=== PATIENT | female | born 1980 | race Two or more races ===

== ENCOUNTER 2022-08-26 09:23 | Emergency (ER) | payer BC ==
[~2022-08-26] VITALS: Ht 165.1 cm; Wt 124.7 kg
--- NOTE | 2022-08-26 09:23 | NUR ---
BIB RA 78 FROM HOME ROOMATE STATED THAT SHE WAS ALTERED IN THE BATHROOM ROOMATE STATED SHE MAY HAVE TAKEN XYWAV WHICH MAKES HER DROWSY. ROOMATE IS UNSURE IF IT WAS APOSSIBLE DRUG OVERSODE AND CALLED EMS. BLOOD GLUCOSE WAS 134 PER EMS. EMS STATED SHE WAS GIVEN 4MG OF ZOFRANA ND 2MG OF NARCAN MAGNET PLACER. ATTACHED TO MONITOR, VITALS ARE WITHIN NORMAL LIMITS. AWAITING MD ROSALES.
--- NOTE | 2022-08-26 09:26 | NUR ---
BLOOD GLUCOSE 97
--- NOTE | 2022-08-26 09:45 | NUR ---
IV started on RAC flushes well no infiltration
--- NOTE | 2022-08-26 09:46 | NUR ---
Straight cath inserted. Urine collected and sent
--- NOTE | 2022-08-26 09:52 | NUR ---
PT WENT TO [facility]IA [facility]
[2022-08-26] MEDS ORDERED: IV NS 0.9% 1,000 ML BAG IV ONE (10:00)
--- NOTE | 2022-08-26 10:15 | NUR ---
PT RETURNED FROM [facility]IA [facility]
[2022-08-26 10:25] LABS: BILIRUBIN,URINE NEGATIVE (NEGATIVE); COLOR,URINE YELLOW (YELLOW); LEUKOCYTE ESTERASE ,URINE NEGATIVE (NEGATIVE); NITRITE, URINE NEGATIVE (NEGATIVE); PH,URINE 7.5 (5.0-8.0); PROTEIN,URINE NEGATIVE (NEGATIVE); UGLUCOSE NEGATIVE (NEGATIVE)
[2022-08-26 10:40] LABS: BACTERIA,URINE Few /HPF (None Seen); RBC,URINE NONE SEEN /HPF (0-2); URINE AMORPHOUS URATE Many /HPF (None Seen); WBC,URINE NONE SEEN /HPF (0-3)
[2022-08-26 10:41] LABS: SQUAMOUS EPITHELIAL CELL,UR Few /HPF (None Seen)
[2022-08-26] MEDS ORDERED: KETOROLAC TROMETHAMINE 15 MG/ML VIAL ONE ×2 (11:18→13:55)
[2022-08-26] MEDS ORDERED: ACETAMINOPHEN 325 MG TABLET ONE (11:18)
[2022-08-26 11:24] LABS: BASOPHILS # (AUTO) 0.1 K/uL (0.0-0.2); BASOPHILS % (AUTO) 0.4 % (0.0-2.0); EOSINOPHILS % (AUTO) 0.5 % (0.0-6.0); HEMATOCRIT 35 % (33-45); HEMOGLOBIN 10.5 g/dL (11.5-14.8); LYMPHOCYTES # (AUTO) 2.3 K/uL (0.8-4.8); LYMPHOCYTES % (AUTO) 13.6 % (20.0-44.0); MEAN CORPUSCULAR HGB CONC 30 g/dl (31.0-36.0); MEAN CORPUSCULAR VOLUME 76 fL (82-100); MONOCYTES # (AUTO) 1.2 K/uL (0.1-1.30); MONOCYTES % (AUTO) 7.3 % (2.0-12.0); NEUTROPHILS % (AUTO) 78.2 % (43.0-81.0); PLATELET COUNT (AUTO) 528 K/uL (150-450); RED BLOOD CELL COUNT(AUTO) 4.61 MIL/uL (4.0-5.2); WHITE BLOOD COUNT (AUTO) 16.7 K/uL (4.3-11.0)
[2022-08-26] MEDS ORDERED: ACETAMINOPHEN 325 MG TABLET PO ONE (11:30)
[2022-08-26] MEDS ORDERED: KETOROLAC TROMETHAMINE INJ 30 MG/ML VIAL IV ONE (11:30)
[2022-08-26 11:32] LABS: CARBON DIOXIDE 25 mmol/L (21-32); CHLORIDE 108 mmol/L (98-107); GLUCOSE 107 mg/dL (74-106); POTASSIUM 4.6 mmol/L (3.5-5.1); SODIUM SERUM 141 mmol/L (136-145); UREA NITROGEN, BLOOD 14 mg/dL (7-18)
[2022-08-26 11:38] LABS: ALANINE AMINOTRANSFERASE 25 U/L (12-78); ALBUMIN 3.4 g/dL (3.4-5.0); ALKALINE PHOSPHATASE 121 U/L (46-116); ASPARTATE AMINOTRANSFERASE 14 U/L (15-37); BILIRUBIN,DIRECT 0.1 mg/dL (0.0-0.2); BILIRUBIN,TOTAL 0.4 mg/dL (0.2-1.0); TOTAL PROTEIN, SERUM 7.1 g/dL (6.4-8.2)
[2022-08-26 11:39] LABS: ACETAMINOPHEN < 10 ug/ml (10-30); ALCOHOL, BLOOD < 3 mg/dL (0-0)
[2022-08-26 12:15] LABS: SERUM AMMONIA 18 umol/L (11-32)
--- NOTE | 2022-08-26 12:28 | NUR ---
radiology called to inform of ankle x ray add on
[2022-08-26 12:36] LABS: THYROID STIMULATING HORMONE 0.031 uIU/mL (0.358-3.74)
--- NOTE | 2022-08-26 12:49 | NUR ---
x ray at bedside.
[2022-08-26] MEDS ORDERED: IBUP-1955 PO (13:41)
--- NOTE | 2022-08-26 14:10 | NUR ---
splint applied short leg Rt and crutches given and tried on
[2022-08-26 14:20] VITALS: BP 137/83
== END 2022-08-26 14:21 | disposition home or self-care (01) ==
LOC: ER 09:28
DX: S82.892A Other fracture of left lower leg, initial encounter for closed fracture (principal); R40.4 Transient alteration of awareness; T50.901A Poisoning by unspecified drugs, medicaments and biological substances, accidental (unintentional), initial encounter; Y92.89 Other specified places as the place of occurrence of the external cause; X58.XXXA Exposure to other specified factors, initial encounter; Y93.89 Activity, other specified; Y99.8 Other external cause status
CPT/HCPCS: 29515; 99285; 96374; 96361; 93005; 71045; 73610; 70450; 82140; 85025; 80048; 87040 ×2; 83605; 80076; 81001; 36415; 84443; 84484; 85730; 80143; 80320; 80307; J7030; J1885 ×2; G0480

== ENCOUNTER 2022-09-26 23:52 | Emergency (ER) | payer BC, OTHER ==
[~2022-09-26] VITALS: Ht 165.1 cm; Wt 124.7 kg
[~2022-09-26 23:52] MED LIST: IBUP-1955 PO
--- NOTE | 2022-09-26 23:59 | NUR ---
PT [id number] FROM HOME C/O RIGHT CALF PAIN S/P FALL FROM ONE STEP AT HOME. PT IS A/O X 4, RR EVEN AND UNLABORED NO SOB NOTED. PT STATED TROUBLE PUTTING WEIGHT ON RIGHT LEG. VSS. NAD. AWAITING ER MD ROSALES
[2022-09-27] MEDS ORDERED: IBUPROFEN 400 MG TABLET ONE (00:20)
[2022-09-27] MEDS ORDERED: IBUPROFEN 400 MG TABLET PO ONE (00:30)
--- NOTE | 2022-09-27 00:39 | NUR ---
[employer]ER[employer] APPRAISER AT PT'S BEDSIDE
--- NOTE | 2022-09-27 00:42 | NUR ---
[facility] in [facility] - 09/27/22 at 0042 by SANNA XRAY DONE AT BEDSIDE
[2022-09-27] MEDS ORDERED: KETOROLAC TROMETHAMINE 15 MG/ML VIAL ONE ×2 (01:54→01:57)
--- NOTE | 2022-09-27 01:58 | NUR ---
Patient discharged to home in stable condition. Written and verbal after care instructions given. Patient verbalizes understanding of instruction.
[2022-09-27] MEDS ORDERED: KETOROLAC TROMETHAMINE INJ 30 MG/ML VIAL IM ONE (02:00)
[2022-09-27 02:11] VITALS: BP 127/74
== END 2022-09-27 02:11 | disposition home or self-care (01) ==
LOC: ER 23:53
DX: M79.661 Pain in right lower leg (principal); Z79.899 Other long term (current) drug therapy
CPT/HCPCS: 99283; 96372; 73590; J1885 ×2

== ENCOUNTER 2023-10-10 14:24 | Emergency (ER) | payer BC, OTHER ==
[~2023-10-10] VITALS: Ht 165.1 cm; Wt 100.7 kg
[2023-10-10 14:44] VITALS: BP 141/71; TEMP 98.4
[2023-10-10] MEDS ORDERED: FLUT16SP16 BNOSTRILS (15:04)
[2023-10-10] MEDS ORDERED: AMOX-430 PO (15:04)
[2023-10-10] MEDS ORDERED: AMOX/CLAVULANATE 875 MG TABLET ONE (15:09)
[2023-10-10] MEDS: AMOX/CLAVULANATE 875 MG TABLET PO ONE (15:11)
[2023-10-10 15:28] VITALS: O2SAT 100
== END 2023-10-10 15:29 | disposition home or self-care (01) ==
LOC: ER 15:02
DX: J32.9 Chronic sinusitis, unspecified (principal); R59.1 Generalized enlarged lymph nodes; R07.0 Pain in throat; G47.419 Narcolepsy without cataplexy; E05.90 Thyrotoxicosis, unspecified without thyrotoxic crisis or storm

== ENCOUNTER 2024-05-19 05:04 | Emergency (ER) | payer OTHER ==
[~2024-05-19] VITALS: Ht 165.1 cm; Wt 90.7 kg
[~2024-05-19 05:04] MED LIST changes: +AMOX-430 PO; +FLUT16SP16 BNOSTRILS; +ONDA4TAB5 PO
[2024-05-19 07:26] LABS: BASOPHILS # (AUTO) 0.1 K/uL (0.0-0.2); BASOPHILS % (AUTO) 0.9 % (0.0-2.0); EOSINOPHILS # (AUTO) 0.1 K/uL (0.0-0.7); HEMATOCRIT 30 % (33-45); HEMOGLOBIN 9.6 g/dL (11.5-14.8); LYMPHOCYTES # (AUTO) 2.4 K/uL (0.8-4.8); LYMPHOCYTES % (AUTO) 26.1 % (20.0-44.0); MEAN CORPUSCULAR HEMOGLOBIN 22 PG (26.0-33.0); MEAN CORPUSCULAR HGB CONC 32 g/dl (31.0-36.0); MEAN CORPUSCULAR VOLUME 71 fL (82-100); MONOCYTES % (AUTO) 11.4 % (2.0-12.0); NEUTROPHILS # (AUTO) 5.5 K/uL (1.8-8.9); NEUTROPHILS % (AUTO) 60.6 % (43.0-81.0); PLATELET COUNT (AUTO) 550 K/uL (150-450); RED CELL DISTRIBUTION WIDTH 18.4 % (11.5-15.0)
[2024-05-19 07:41] LABS: CALCIUM, SERUM 9.1 mg/dL (8.5-10.1); CREATININE 0.8 mg/dL (0.6-1.3); POTASSIUM 3.7 mmol/L (3.5-5.1)
[2024-05-19 07:43] LABS: INR 0.98 (0.91-1.10); PARTIAL THROMBOPLASTIN TIME 24.4 SEC (24.3-34.3); PROTHROMBIN TIME 10.4 SECS (9.2-11.1)
[2024-05-19 07:47] LABS: ALBUMIN 3.7 g/dL (3.4-5.0); BILIRUBIN,DIRECT 0.1 mg/dL (0.0-0.2); BILIRUBIN,TOTAL 0.4 mg/dL (0.2-1.0); TOTAL PROTEIN, SERUM 7.5 g/dL (6.4-8.2)
[2024-05-19] MEDS ORDERED: PANT20TA2 PO (08:03)
[2024-05-19] MEDS ORDERED: PANTOPRAZOLE 40 MG TABLET.DR PO ONE ×2 (08:16→08:30)
[2024-05-19 08:22] VITALS: BP 150/86; TEMP 98; O2SAT 100
== END 2024-05-19 08:23 | disposition home or self-care (01) ==
LOC: ER 05:06
DX: R10.13 Epigastric pain (principal); G47.419 Narcolepsy without cataplexy; Z87.11 Personal history of peptic ulcer disease
CPT/HCPCS: 36415; 80048-TC; 80076-TC; 83690-TC; 85025-TC; 85730-TC